=== PATIENT | female | born 1980 | race Caucasian/White ===

== ENCOUNTER → 2022-11-12 | Outpatient (REF) | payer OTHER, BC ==
[~2022-11-12] MED LIST: AMPICILLIN; CLIN300C; DECADRON; IRON; MORPHINE SULFATE; PERC5TAB8; PHENERGAN; PRENATAL MULTIVITAMIN; PROT1TAB2
== END ==
LOC: M SFHCDERM 14:17
PROVIDERS: ATTEND Physician Assistant
DX: D23.5 Other benign neoplasm of skin of trunk (principal)

== ENCOUNTER → 2023-02-18 | Outpatient (REF) | payer OTHER, BC | LOC: M SFHCDERM 14:08 | PROVIDERS: ATTEND Physician Assistant | DX: D48.5 Neoplasm of uncertain behavior of skin (principal); D18.01 Hemangioma of skin and subcutaneous tissue ==